=== PATIENT | male | born 1950 | race African-American/Black ===

== ENCOUNTER 2016-05-04 09:20 | Emergency (ER) | payer MEDICARE, MEDICAID ==
[~2016-05-04] VITALS: Ht 175.3 cm; Wt 68.0 kg
[~2016-05-04 09:20] MED LIST: AMLODIPINE BESY10 MG ORAL; ATRIPLA1 TAB ORAL; BP pill; LEVAQUIN750 MG ORAL; NAPROSYN500 M1 ORAL; NKM; NORCO 10-325 T1 EACH ORAL; NORCO 5-325 TA1 EACH ORAL; PERCOCET 5-3251 EACH ORAL; PREDNISONE50 MG ORAL; ROBAXIN-750750 MG PO; VALIUM10 MG ORAL; VALIUM5 MG ORAL; [UNRECOGNIZED DRUG - OTHER] IJ
[2016-05-04 09:30] VITALS: BP 130/88
[2016-05-04] MEDS ORDERED: Oxycodone/Acetaminophen 5-325 ORAL ONE (10:45)
[2016-05-04 12:24] VITALS: BP 124/78
--- NOTE | 2016-05-04 12:27 | Diagnostic Imaging Report ---
Indication: Neck pain. Technique: Continuous helical imaging of the neck was obtained transaxially from the skull base to the upper thoracic spine. 2-D coronal and sagittal reformatted images were obtained. Total Dose length Product (DLP): [address] Dose Index Volume (CTDIvol): 19 mGy Comparison: None Findings: The study is limited by the absence of a intravenous contrast. Small nodes are seen in the nonspecific in nature. The nodes are less than a centimeter in size. There is no mass identified. The epiglottis and aryepiglottic folds, larynx, subglottic airway appear unremarkable. Cartilaginous structures are unremarkable. The skull base appears clear. Mastoids are clear bilaterally. Degenerative changes of the cervical spine are moderate and characterized by narrowing of intervertebral disc, endplate, uncovertebral and facet spur formation. There is no significant malalignment seen. Aorta shows mural calcification. Impression: No specific abnormalities of the neck identified to account for the given history of pain. Atherosclerotic vascular disease Moderate spondylosis.
[2016-05-04] MEDS ORDERED: IBUPROFEN800 M1 PO (13:03)
[2016-05-04] MEDS ORDERED: ROBAXIN-750750 MG PO (13:03)
--- NOTE | 2016-05-05 07:42 | Emergency Room Report ---
History of Present Illness General Chief Complaint: Pain Source: Patient, Medical Record Present Illness HPI 65YOM with posterior neck pressure for 2 days in setting of multiple weeks of cough. + smoker. No asthma or COPD. Denies headache, change in vision, blurry vision, fever/chills, nausea/vomiting. Describes "heaviness" to back of head. Not on AC, ASA. Denies other med problems. Not taking any OTC meds. Allergies: Coded Allergies: PENICILLINS (Verified Allergy, 10/08/12) Patient History Past Medical History: none Past Surgical History: none Pertinent Family History: none Social History: Reports: smoking Immunizations: UTD Reviewed Nursing Documentation: PMH: Agreed, PSxH: Agreed Nursing Documentation-PMH Hx Hypertension: Yes Hx Cancer: No Hx Gastrointestinal Problems: No Hx Neurological Problems: No Review of Systems All Other Systems: negative except mentioned in HPI Physical Exam Vital Signs Date Time Temp Pulse Resp B/P Pulse Ox O2 Delivery O2 Flow Rate FiO2 05/04/16 09:29 98.2 61 16 130/88 98 Room Air Sp02 EP Interpretation: reviewed, normal General Appearance: normal inspection, well appearing, no apparent distress, alert, GCS 15, non-toxic Head: normocephalic, atraumatic Eyes: bilateral eye EOMI, bilateral eye PERRL ENT: normal ENT inspection, hearing grossly normal, normal voice Neck: normal inspection, full range of motion, supple, no bony tend Respiratory: normal inspection, lungs clear, normal breath sounds, no respiratory distress, no retraction, no wheezing Cardiovascular #1: regular rate, rhythm, no edema Gastrointestinal: normal inspection, normal bowel sounds, non tender, soft, no guarding, no hernia Genitourinary: no CVA tenderness Musculoskeletal: normal inspection, back normal, normal range of motion, Donald' s Sign negative Neurologic: normal inspection, alert, oriented x3, responsive, bus person III-XII nml as tested, motor strength/tone normal, speech normal Psychiatric: normal inspection, judgement/insight normal, mood/affect normal Skin: normal inspection Lymphatic: normal inspection Medical Decision Making Diagnostic Impression: Primary Impression: Neck pain ER Course 65 YOm with posterior neck pain Likely reactionary from "weeks" of cough, from smoking CT neck does not show any acute abnormalities to explain pain Was unable to do CTA neck to evaluate vasculature because of patient's stated allergy to IV contrast Feels better after analgesia DC with RX, PMD followup Last Vital Signs Date Time Temp Pulse Resp B/P Pulse Ox O2 Delivery O2 Flow Rate FiO2 05/04/16 12:24 98.2 68 16 124/78 98 Room Air Status: improved Disposition: HOME, SELF-CARE Condition: Improved Scripts Methocarbamol* (ROBAXIN-750*) 750 Mg Tablet 750 MG PO TID, #30 TAB 0 Refills Prov: TARIQ OLIVIER M.D. 05/04/16 Ibuprofen (Ibuprofen) 800 Mg Tablet 800 MG PO TID for 7 Days, #30 TAB Prov: TARIQ OLIVEIR M.D. 05/04/16 Patient Instructions: Cervical Sprain, Japs-[id number] Additional Instructions: - Take ibuprofen with flexeril up to 3x a day for neck pain/spasm - Follow up with your doctor in 2-3 days as needed TARIQ OLIVIER M.D. May 05, 2016 07:42
== END 2016-05-04 12:24 | disposition home or self-care (01) ==
LOC: EMR 10:16
DX: M54.2 Cervicalgia (principal); I10 Essential (primary) hypertension; F17.200 Nicotine dependence, unspecified, uncomplicated; Z88.0 Allergy status to penicillin
CPT/HCPCS: 70490; 99284

== ENCOUNTER 2016-06-09 13:50 | Emergency (ER) | payer MEDICARE, MEDICAID ==
[~2016-06-09] VITALS: Ht 175.3 cm; Wt 68.0 kg
[~2016-06-09 13:50] MED LIST changes: +IBUPROFEN800 M1 PO
[2016-06-09 13:54] VITALS: BP 145/72
[2016-06-09] MEDS ORDERED: Ketorolac 30mg Inj IM ONE (14:30)
[2016-06-09] MEDS ORDERED: Methocarbamol 750mg tab ORAL ONE (14:30)
[2016-06-09] MEDS ORDERED: IBUPROFEN600 MG ORAL (15:32)
[2016-06-09] MEDS ORDERED: ROBAXIN-750750 MG PO (15:32)
[2016-06-09] MEDS ORDERED: TRAMADOL HCL50 MG ORAL (15:32)
[2016-06-09 15:37] VITALS: BP 145/72
--- NOTE | 2016-06-09 15:41 | Diagnostic Imaging Report ---
Indication: PAIN Technique: 3 views of the lumbar spine Comparison: None Findings:Bony alignment is normal. Vertebral body heights are preserved. Disc spaces are preserved. No acute fractures. No dislocations. Pedicles are intact. Sacral arches are preserved Impression:Negative
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
== END 2016-06-09 15:37 | disposition home or self-care (01) ==
LOC: EMR 14:25
DX: S39.012A Strain of muscle, fascia and tendon of lower back, initial encounter (principal); I10 Essential (primary) hypertension; Z88.0 Allergy status to penicillin; V43.52XA Car driver injured in collision with other type car in traffic accident, initial encounter; Y92.410 Unspecified street and highway as the place of occurrence of the external cause; Y99.8 Other external cause status
CPT/HCPCS: 72020; 96372; 99284; J1885

== ENCOUNTER 2018-04-23 19:43 | Emergency (ER) | payer MEDICARE, MEDICAID ==
[~2018-04-23] VITALS: Ht 175.3 cm; Wt 68.0 kg
[~2018-04-23 19:43] MED LIST changes: +IBUPROFEN600 MG ORAL; +TRAMADOL HCL50 MG ORAL
[2018-04-23 20:34] VITALS: BP 149/79
--- NOTE | 2018-04-23 20:35 | Emergency Room Report ---
History of Present Illness General Chief Complaint: Skin Rash/Abscess Present Illness Allergies: Coded Allergies: PENICILLINS (Verified Allergy, 10/08/12) Patient History Past Medical History: see triage record Past Surgical History: none Pertinent Family History: none Reviewed Nursing Documentation: PMH: Agreed; PSxH: Agreed Nursing Documentation-PMH Hx Hypertension: Yes Hx Cancer: No Hx Gastrointestinal Problems: No Hx Neurological Problems: No Physical Exam Vital Signs Date Time Temp Pulse Resp B/P (MAP) Pulse Ox O2 Delivery O2 Flow Rate FiO2 04/23/18 19:59 98.2 73 16 149/79 97 Room Air Medical Decision Making PA Attestation Dr. Dunham is my supervising Physician whom patient management has been discussed with. Diagnostic Impression: Primary Impression: Acute folliculitis ER Course folliculitis Last Vital Signs Date Time Temp Pulse Resp B/P (MAP) Pulse Ox O2 Delivery O2 Flow Rate FiO2 04/23/18 19:59 98.2 73 16 149/79 97 Room Air Disposition: HOME, SELF-CARE Condition: Stable Patient Instructions: Abscess, Ptlt-[id number] Additional Instructions: Take medications as directed. ( Finish all Antibiotics). Follow up with a Primary Care Provider in 3-5 days, even if your symptoms have resolved. Return sooner to ED if new symptoms occur, or current symptoms become worse. - Please note that this Emergency Department Report was dictated using [employer] technology software, occasionally this can lead to erroneous entry secondary to interpretation by the dictation equipment. Leigh Lynn Apr 23, 2018 20:35
--- NOTE | 2018-04-23 20:35 | NUR ---
ED Nurse Note: pt walked in c/o of swollen lymph node on the left ear. pt stated he noticed it yesterday. AO4. NAD. VSS.
[2018-04-23] MEDS ORDERED: CEPHALEXIN500 MG ORAL (20:37)
[2018-04-23] MEDS ORDERED: NAPROXEN500 M2 ORAL (20:37)
[2018-04-23 20:40] VITALS: BP 149/79
--- NOTE | 2018-04-23 20:40 | NUR ---
ED Nurse Note: Patient cleared cleared for discharge per ERMD. AO4. NAD. VSS. Patient given prescriptions and discharge instructions; verbalized understanding. ID removed. Patient ambulated steady out of ED with all belongings.
== END 2018-04-23 20:40 | disposition home or self-care (01) ==
LOC: EMR 20:30
DX: L73.9 Follicular disorder, unspecified (principal); I10 Essential (primary) hypertension; Z88.0 Allergy status to penicillin
CPT/HCPCS: 99282

== ENCOUNTER 2018-09-04 13:50 | Emergency (ER) | payer MEDICARE, MEDICAID ==
[~2018-09-04] VITALS: Ht 175.3 cm; Wt 68.0 kg
[~2018-09-04 13:50] MED LIST changes: +CEPHALEXIN500 MG ORAL; +NAPROXEN500 M2 ORAL
--- NOTE | 2018-09-04 14:15 | NUR ---
ED Nurse Note: PT WALKED IN TO ER TODAY FROM HOME. AOX4. PT C/O SOB X LAST NIGHT. PT BELIEVES IT MAY BE RELATED TO CONSTIPATION. PT DENIES ABDOMINAL PAIN, NAUSEA, OR VOMITING. LAST BM X LAST NIGHT WHICH STATES WAS FORMED. AT BEDSIDE, NO SIGNS OF RESPIRATORY DISTRESS, RETRACTIONS, OR ACCESSORY MUSLCE USE NOTED. PT ABLE TO SPEAK IN FULL SENTENCES. RR18, 02SAT 99% ON RA. ABDOMEN APPEARS DISTENDED BUT NONTENDER TO PALPATION. ACTIVE BOWEL SOUNDS IN ALL QUADRANTS.
[2018-09-04 14:17] VITALS: BP_SYST 142; BP_SYST 150; BP_DIAS 78; BP_DIAS 82
--- NOTE | 2018-09-04 14:31 | NUR ---
ED Nurse Note: XRAY AT BEDSIDE.
--- NOTE | 2018-09-04 14:34 | Emergency Room Report ---
History of Present Illness General Chief Complaint: General Complaint Source: Patient Present Illness HPI Patient presents with different complaints including but not limited to Abdominal bloating sensation reports that he has not had a bowel movement for 3 days patient reports feeling generally weak He reports that when laying flat he feels more uncomfortable There was some reports of feeling short of breath denies any chest pain denies any vomiting or diarrhea denies any flank pain denies any dysuria or frequency Allergies: Coded Allergies: PENICILLINS (Verified Allergy, 10/08/12) Patient History Past Medical History: see triage record Past Surgical History: none Reviewed Nursing Documentation: PMH: Agreed; PSxH: Agreed Nursing Documentation-PMH Past Medical History: No History, Except For Hx Hypertension: Yes Hx Cancer: No Hx Gastrointestinal Problems: No Hx Neurological Problems: No Review of Systems All Other Systems: negative except mentioned in HPI Physical Exam Vital Signs Date Time Temp Pulse Resp B/P (MAP) Pulse Ox O2 Delivery O2 Flow Rate FiO2 09/04/18 13:56 98.1 65 20 147/88 (107) 97 Room Air Sp02 EP Interpretation: reviewed, normal General Appearance: well appearing, no apparent distress Head: normocephalic, atraumatic Eyes: bilateral eye PERRL, bilateral eye EOMI ENT: hearing grossly normal, normal pharynx, TMs + canals normal, uvula midline Neck: full range of motion, supple, no meningismus, no bony tend Respiratory: lungs clear, normal breath sounds, no rhonchi, no respiratory distress, no retraction, no accessory muscle use Cardiovascular #1: normal peripheral pulses, regular rate, rhythm, no edema, no gallop, no JVD, no murmur Gastrointestinal: normal bowel sounds, non tender, soft, no mass, no organomegaly, non-distended, no guarding, no hernia, no pulsatile mass, no rebound Genitourinary: no CVA tenderness Musculoskeletal: normal inspection Neurologic: oriented x3, responsive, leasing specialist III-XII nml as tested, motor strength/ tone normal, sensory intact Psychiatric: mood/affect normal Lymphatic: normal inspection, no adenopathy Medical Decision Making Diagnostic Impression: Primary Impression: Abdominal pain ER Course With the history exam and presentation, multiple differentials considered, including but not limited to appendicitis, gastritis, cholecystitis, diverticulitis Patient's blood work and imaging studies are at baseline levels On repeat evaluation patient reports that he feels significantly better He was provided a copy of his imaging and blood work and reports that he has close follow-up with his primary physician Labs Test 09/04/18 14:27 09/04/18 14:38 White Blood Count 8.4 K/UL (4.8-10.8) Red Blood Count 4.95 M/UL (4.70-6.10) Hemoglobin 14.0 G/DL (14.2-18.0) Hematocrit 44.0 % (42.0-52.0) Mean Corpuscular Volume 89 FL (80-99) Mean Corpuscular Hemoglobin 28.2 PG (27.0-31.0) Mean Corpuscular Hemoglobin Concent 31.8 G/DL (32.0-36.0) Red Cell Distribution Width 12.9 % (11.6-14.8) Platelet Count 239 K/UL (150-450) Mean Platelet Volume 5.9 FL (6.5-10.1) Neutrophils (%) (Auto) 43.7 % (45.0-75.0) Lymphocytes (%) (Auto) 45.5 % (20.0-45.0) Monocytes (%) (Auto) 8.0 % (1.0-10.0) Eosinophils (%) (Auto) 1.4 % (0.0-3.0) Basophils (%) (Auto) 1.5 % (0.0-2.0) Sodium Level 140 MMOL/L (136-145) Potassium Level 3.9 MMOL/L (3.5-5.1) Chloride Level 103 MMOL/L (98-107) Carbon Dioxide Level 28 MMOL/L (21-32) Anion Gap 9 mmol/L (5-15) Blood Urea Nitrogen 12 mg/dL (7-18) Creatinine 1.3 MG/DL (0.55-1.30) Estimat Glomerular Filtration Rate > 60 mL/min (>60) Glucose Level 102 MG/DL (74-106) Calcium Level 9.6 MG/DL (8.5-10.1) Total Bilirubin 0.3 MG/DL (0.2-1.0) Aspartate Amino Transf (AST/SGOT) 30 U/L (15-37) Alanine Aminotransferase (ALT/SGPT) 41 U/L (12-78) Alkaline Phosphatase 97 U/L (46-116) Total Creatine Kinase 112 U/L (26-308) Creatine Kinase MB 0.7 NG/ML (0.0-3.6) Creatine Kinase MB Relative Index 0.6 Troponin I 0.000 ng/mL (0.000-0.056) Pro-B-Type Natriuretic Peptide 17 pg/mL (0-125) Total Protein 8.4 G/DL (6.4-8.2) Albumin 4.9 G/DL (3.4-5.0) Globulin 3.5 g/dL Albumin/Globulin Ratio 1.4 (1.0-2.7) Lipase 204 U/L (73-393) Urine Color Pale yellow Urine Appearance Clear Urine pH 5 (4.5-8.0) Urine Specific [place] 1.010 (1.005-1.035) Urine Protein Negative (NEGATIVE) Urine Glucose (UA) Negative (NEGATIVE) Urine Ketones Negative (NEGATIVE) Urine Blood Negative (NEGATIVE) Urine Nitrite Negative (NEGATIVE) Urine Bilirubin Negative (NEGATIVE) Urine Urobilinogen Normal MG/DL (0.0-1.0) Urine Leukocyte Esterase Negative (NEGATIVE) Urine Opiates Screen Negative (NEGATIVE) Urine Barbiturates Screen Negative (NEGATIVE) Phencyclidine (PCP) Screen Negative (NEGATIVE) Urine Amphetamines Screen Negative (NEGATIVE) Urine Benzodiazepines Screen Negative (NEGATIVE) Urine Cocaine Screen Negative (NEGATIVE) Urine Marijuana (THC) Screen Negative (NEGATIVE) Rhythm Strip Diag. Results EP Interpretation: yes Rate: 77 Rhythm: NSR, no PVC's, no ectopy Chest X-Ray Diagnostic Results Chest X-Ray Diagnostic Results : Chest X-Ray Ordered: Yes # of Views/Limited/Complete: 1 View Indication: Chest Pain EP Interpretation: Yes Interpretation: no consolidation, no effusion, no pneumothorax Impression: No acute disease Electronically Signed by: Roly Villanueva, DO CT/MRI/US Diagnostic Results CT/MRI/US Diagnostic Results : Impression CT abdomen pelvisImpression: Limited assessment of the GI tract, due to lack of enteric contrast administration No definite acute abnormality Mild fatty liver Nonspecific slight infiltration of the perirectal fat, evident previously, presumably chronic Low-attenuation lesion within the L3 spinous process, unchanged from 2016 exam, presumably benign Incidental findings as noted, including posterior dependent pulmonary atelectatic changes, small left inguinal hernia contains only fat, left renal cysts, slightly prominent prostate Last Vital Signs Date Time Temp Pulse Resp B/P (MAP) Pulse Ox O2 Delivery O2 Flow Rate FiO2 09/04/18 14:17 98.2 68 18 142/82 99 Room Air Status: improved Disposition: HOME, SELF-CARE Condition: Improved Scripts Magnesium Citrate (MAGNESIUM CITRATE) 296 Ml Solution 100 ML PO DAILY for 3 Days, ML Prov: Roly Villanueva DO 09/04/18 Docusate Sodium* (COLACE*) 100 Mg Capsule 100 MG ORAL THREE TIMES A DAY, #21 CAP Prov: Roly Villanueva DO 09/04/18 Additional Instructions: Patient is provided with the discharge instructions notified to follow up with primary doctor in the next 2-3 days otherwise return to the er with any worsening symptoms. Please note that this report is being documented using [employer] technology. This can lead to erroneous entry secondary to incorrect interpretation by the dictating instrument. Roly Villanueva DO Sep 04, 2018 14:34
--- NOTE | 2018-09-04 14:40 | NUR ---
ED Nurse Note: URINE COLLECTED AND SENT TO LAB.
[2018-09-04 14:43] LABS: BASOPHILS % (AUTO) 1.5 % (0.0-2.0); EOSINOPHILS % (AUTO) 1.4 % (0.0-3.0); LYMPHOCYTES % (AUTO) 45.5 % (20.0-45.0); MEAN CORPUSCULAR VOLUME 89 FL (80-99); NEUTROPHILS % (AUTO) 43.7 % (45.0-75.0); PLATELET COUNT 239 K/UL (150-450); RED BLOOD COUNT 4.95 M/UL (4.70-6.10); RED CELL DISTRIBUTION WIDTH 12.9 % (11.6-14.8); WHITE BLOOD COUNT 8.4 K/UL (4.8-10.8)
--- NOTE | 2018-09-04 14:46 | NUR ---
ED Nurse Note: PT TO CT VIA [facility].
[2018-09-04 14:51] LABS: ANION GAP 9 mmol/L (5-15); BLOOD UREA NITROGEN 12 mg/dL (7-18); CALCIUM 9.6 MG/DL (8.5-10.1); CARBON DIOXIDE 28 MMOL/L (21-32); CHLORIDE 103 MMOL/L (98-107); CREATININE 1.3 MG/DL (0.55-1.30); POTASSIUM 3.9 MMOL/L (3.5-5.1); SODIUM 140 MMOL/L (136-145)
[2018-09-04 14:53] LABS: APPEARANCE,URINE CLEAR; BILIRUBIN, URINE NEGATIVE (NEGATIVE); COLOR,URINE PALE YELLOW; GLUCOSE, URINE (UA) NEGATIVE (NEGATIVE); KETONES,URINE NEGATIVE (NEGATIVE); LEUKOCYTE ESTERASE ,URINE NEGATIVE (NEGATIVE); NITRITE,URINE NEGATIVE (NEGATIVE); PH,URINE 5 (4.5-8.0); PROTEIN,URINE NEGATIVE (NEGATIVE); UROBILINOGEN,URINE NORMAL MG/DL (0.0-1.0)
--- NOTE | 2018-09-04 14:56 | NUR ---
ED Nurse Note: PT BACK FROM CT VIA [facility].
[2018-09-04 15:03] LABS: ALANINE AMINOTRANSFERASE 41 U/L (12-78); ALBUMIN 4.9 G/DL (3.4-5.0); ALBUMIN/GLOBULIN RATIO 1.4 (1.0-2.7); ALKALINE PHOSPHATASE 97 U/L (46-116); ASPARTATE AMINO TRANSFERASE 30 U/L (15-37); BILIRUBIN,TOTAL 0.3 MG/DL (0.2-1.0); CKMB 0.7 NG/ML (0.0-3.6); CREATINE KINASE 112 U/L (26-308)
--- NOTE | 2018-09-04 15:11 | Diagnostic Imaging Report ---
Indication: Shortness of breath Technique: One view of the chest Comparison: 07/29/2015 Findings: Inspiration is suboptimal. Lungs pleural spaces are clear. The heart is borderline enlarged, size probably exaggerated by low lung volumes Impression: No acute process Borderline cardiomegaly
--- NOTE | 2018-09-04 15:49 | Diagnostic Imaging Report ---
Indication: Abdominal pain, abdominal bloating sensation, constipation Technique: Spiral acquisitions obtained through the abdomen and pelvis. No oral contrast utilized, per emergency room physician request No IV contrast utilized, per referring physician request.. Multiplanar reconstructions were generated. Total dose length product 610.12 mGycm. CTDIvol(s) 12.2 mGy. Dose reduction achieved using automated exposure control Comparison: 07/13/2015 Findings: Lack of enteric contrast limits assessment of the GI tract. Small left inguinal hernia containing only fat again demonstrated, may be slightly larger than previously. No evidence of diverticulosis or diverticulitis demonstrated. The appendix is normal. No small bowel distention. No free or loculated intraperitoneal gas or fluid is evident. Distal esophagus, stomach, duodenum are unremarkable. There is slight infiltration of the perirectal fat, but this appears to been evident previously. Lack of IV contrast limits assessment of the solid organs. The liver is slightly hypoattenuating. No focal abnormality. The gallbladder, bile ducts, pancreas, spleen, adrenals, right kidney are unremarkable. Left kidney demonstrates multiple small cysts as well as multiple small low-attenuation lesions which are too small to characterize, also evident previously and unchanged. No renal or ureteral calculi, hydronephrosis, or hydroureter. The bladder is unremarkable. No pelvic mass or adenopathy. Prostate is only mildly prominent. No retroperitoneal or mesenteric mass or adenopathy. The included lung bases demonstrate posterior atelectatic changes. The bones demonstrate a small low-attenuation lesion in the L3 spinous process. This was evident previously in retrospect and unchanged When compared to the prior exam, previously demonstrated colonic and small bowel fluid are no longer evident Impression: Limited assessment of the GI tract, due to lack of enteric contrast administration No definite acute abnormality Mild fatty liver Nonspecific slight infiltration of the perirectal fat, evident previously, presumably chronic Low-attenuation lesion within the L3 spinous process, unchanged from 2016 exam, presumably benign Incidental findings as noted, including posterior dependent pulmonary atelectatic changes, small left inguinal hernia contains only fat, left renal cysts, slightly prominent prostate The CT scanner at [facility] is accredited by the [employer] and the scans are performed using protocols designed to limit radiation exposure to as low as reasonably achievable to attain images of sufficient resolution adequate for diagnostic evaluation.
[2018-09-04] MEDS ORDERED: MAGNESIUM CITR296 M1 PO (17:36)
[2018-09-04] MEDS ORDERED: COLACE100 MG ORAL (17:36)
--- NOTE | 2018-09-04 17:47 | NUR ---
ED Nurse Note: PT LAYING PEACEFULLY IN BED IN NAD. AOX4. PRESCRIPTIONS AND DISCHARGE PAPERWORK EXPLAINED TO PT. PT VERBALIZES UNDERSTANDING AND ALL QUESTIONS ANSWERED. PRESCRIPTIONS AND DISCHARGE PAPERWORK GIVEN TO PT, IV AND ID WRISTBAND REMOVED. PT WALKED OUT OF ER WITH STEADY GAIT AND ALL BELONGINGS.
[2018-09-04 17:48] VITALS: BP 146/82
== END 2018-09-04 17:50 | disposition home or self-care (01) ==
LOC: EMR 14:30 → CANBEDREQ 15:41 → EMR 17:50
DX: R10.9 Unspecified abdominal pain (principal); R14.0 Abdominal distension (gaseous); Z88.0 Allergy status to penicillin; I10 Essential (primary) hypertension; R06.02 Shortness of breath; K76.0 Fatty (change of) liver, not elsewhere classified; N28.1 Cyst of kidney, acquired; K40.90 Unilateral inguinal hernia, without obstruction or gangrene, not specified as recurrent
CPT/HCPCS: 36415; 71045; 74176; 80053; 80307; 81003; 82550; 82553; 83690; 83880; 84484; 85025; 87040; 93005; 96360; 99284

== ENCOUNTER 2019-05-04 12:55 | Emergency (ER) | payer MEDICARE, MEDICAID ==
[~2019-05-04] VITALS: Ht 175.3 cm; Wt 68.0 kg
[~2019-05-04 12:55] MED LIST changes: +COLACE100 MG ORAL; +MAGNESIUM CITR296 M1 PO
[2019-05-04 13:24] VITALS: BP 145/71
[2019-05-04 13:28] LABS: BASOPHILS % (AUTO) 0.9 % (0.0-2.0); EOSINOPHILS % (AUTO) 1.7 % (0.0-3.0); HEMATOCRIT 39.7 % (42.0-52.0); HEMOGLOBIN 13.4 G/DL (14.2-18.0); LYMPHOCYTES % (AUTO) 47.2 % (20.0-45.0); MEAN CORPUSCULAR VOLUME 85 FL (80-99); MONOCYTES % (AUTO) 8.3 % (1.0-10.0); NEUTROPHILS % (AUTO) 41.8 % (45.0-75.0); PLATELET COUNT 224 K/UL (150-450); RED CELL DISTRIBUTION WIDTH 12.5 % (11.6-14.8); WHITE BLOOD COUNT 9.5 K/UL (4.8-10.8)
[2019-05-04 13:40] LABS: ANION GAP 10 mmol/L (5-15); BLOOD UREA NITROGEN 12 mg/dL (7-18); CALCIUM 9.5 MG/DL (8.5-10.1); CARBON DIOXIDE 26 MMOL/L (21-32); CHLORIDE 105 MMOL/L (98-107); CREATININE 1.2 MG/DL (0.55-1.30); SODIUM 141 MMOL/L (136-145)
--- NOTE | 2019-05-04 13:40 | NUR ---
ED Nurse Note: Pt walked into ED w/ c/o R chest pain that is 3/10 pain since yesterday. Pt denies radiation, numbness, tingling. pt denies nausea, vomiting. Pt is alert and orientedx4, ambulatory. Pt is set up on monitor. Pt labs drawn and sent.
[2019-05-04 13:45] LABS: ALANINE AMINOTRANSFERASE 45 U/L (12-78); ALBUMIN 3.9 G/DL (3.4-5.0); ALKALINE PHOSPHATASE 101 U/L (46-116); ASPARTATE AMINO TRANSFERASE 28 U/L (15-37); BILIRUBIN,TOTAL 0.3 MG/DL (0.2-1.0)
--- NOTE | 2019-05-04 14:31 | Emergency Room Report ---
History of Present Illness General Chief Complaint: Chest Pain Source: Patient Present Illness [facility] Disclaimer: Please note that this report is being documented using [employer] technology. This can lead to erroneous entry secondary to incorrect interpretation by the dictating instrument. HPI: 68-year-old male with no reported medical history presents for evaluation of chest discomfort. Symptoms began approximately 2 hours prior to arrival and have now resolved. He noted a strange sensation across the upper chest, slightly more on the right side. He believes it was indigestion and drink some carbonated drinks which somewhat relieved it. He has felt this sensation in the past and usually goes away on its own. Denies any shortness of breath, recent cough, fever, chills, neck pain, back pain, abdominal pain, nausea, vomiting, diaphoresis or other changes in his health. He has not returned to his baseline has no complaints. Has not had a cardiology evaluation in the past. No history of CAD. Does not smoke. Takes no medications. Follows regularly with his PMD, Dr. Fulton PMH: Patient denies PSH: Denies Allergies: None Social Hx: Denies alcohol or tobacco use Allergies: Coded Allergies: PENICILLINS (Verified Allergy, 10/08/12) Nursing Documentation-[facility] Past Medical History: No History, Except For Hx Hypertension: Yes Hx Cancer: No Hx Gastrointestinal Problems: No Hx Neurological Problems: No Review of Systems All Other Systems: negative except mentioned in HPI Physical Exam Vital Signs Date Time Temp Pulse Resp B/P (MAP) Pulse Ox O2 Delivery O2 Flow Rate FiO2 05/04/19 12:58 97.3 59 18 153/73 (99) 97 Room Air 05/04/19 13:24 99 General: Awake and alert, no acute distress HEENT: NC/AT. EOMI. Cardiovascular: RRR. S1 and S2 normal. No murmur appreciated Resp: Normal work of breathing. No cough, wheezing or crackles appreciated Abdomen: Abdomen is soft, nondistended. Nontender Skin: Intact. No abrasions, laceration or rash over the exposed skin MSK: Normal tone and bulk. Moving all extremities. No obvious deformity. Neuro: Awake and alert. Mentating appropriately. Medical Decision Making Diagnostic Impression: Primary Impression: Chest pain ER Course 68-year-old male presents for evaluation of chest discomfort now resolved. He is well-appearing and rather stable vital signs. He has no complaints at this time. Differential includes was not limited to angina, ACS, esophageal spasm, dyspepsia, GERD, pancreatitis, pneumonia, bronchitis, effusion, muscle spasm. EKG on arrival is nonischemic though slightly bradycardic. Will obtain cardiac labs and chest x-ray. Patient has risk factors regarding his age with otherwise lifestyle factors and personal history are somewhat reassuring. Laboratory Tests Test 05/04/19 13:20 White Blood Count 9.5 K/UL (4.8-10.8) Red Blood Count 4.70 M/UL (4.70-6.10) Hemoglobin 13.4 G/DL (14.2-18.0) L Hematocrit 39.7 % (42.0-52.0) L Mean Corpuscular Volume 85 FL (80-99) Mean Corpuscular Hemoglobin 28.4 PG (27.0-31.0) Mean Corpuscular Hemoglobin Concent 33.6 G/DL (32.0-36.0) Red Cell Distribution Width 12.5 % (11.6-14.8) Platelet Count 224 K/UL (150-450) Mean Platelet Volume 5.4 FL (6.5-10.1) L Neutrophils (%) (Auto) 41.8 % (45.0-75.0) L Lymphocytes (%) (Auto) 47.2 % (20.0-45.0) H Monocytes (%) (Auto) 8.3 % (1.0-10.0) Eosinophils (%) (Auto) 1.7 % (0.0-3.0) Basophils (%) (Auto) 0.9 % (0.0-2.0) Sodium Level 141 MMOL/L (136-145) Potassium Level 4.0 MMOL/L (3.5-5.1) Chloride Level 105 MMOL/L (98-107) Carbon Dioxide Level 26 MMOL/L (21-32) Anion Gap 10 mmol/L (5-15) Blood Urea Nitrogen 12 mg/dL (7-18) Creatinine 1.2 MG/DL (0.55-1.30) Estimate Glomerular Filtration Rate > 60 mL/min (>60) Glucose Level 139 MG/DL (74-106) H Calcium Level 9.5 MG/DL (8.5-10.1) Total Bilirubin 0.3 MG/DL (0.2-1.0) Aspartate Amino Transferase (AST) 28 U/L (15-37) Alanine Aminotransferase (ALT) 45 U/L (12-78) Alkaline Phosphatase 101 U/L (46-116) Troponin I 0.000 ng/mL (0.000-0.056) Total Protein 7.9 G/DL (6.4-8.2) Albumin 3.9 G/DL (3.4-5.0) Globulin 4.0 g/dL Albumin/Globulin Ratio 1.0 (1.0-2.7) EKG Diagnostic Results EKG Time: 13:04 Rate: bradycardiac Rhythm: NSR ST Segments: no acute changes Other Impression Sinus bradycardia, normal axis, normal intervals, no ST segment changes Rhythm Strip Diag. Results Rhythm Strip Time: 13:04 EP Interpretation: yes Rate: 50s Rhythm: NSR, no PVC's, no ectopy Chest X-Ray Diagnostic Results Chest X-Ray Diagnostic Results : Chest X-Ray Ordered: Yes Indication: Chest Pain Interpretation: no consolidation, no effusion, no pneumothorax Impression: No acute disease Electronically Signed by: Electronically signed by Dr. Mansoor Dunne Reevaluation Time: 14:31 Last Vital Signs Date Time Temp Pulse Resp B/P (MAP) Pulse Ox O2 Delivery O2 Flow Rate FiO2 05/04/19 13:24 74 18 Room Air 99 05/04/19 13:24 97.3 145/71 99 Reevaluation Impression Labs including cardiac enzymes are within normal limits. Patient arvind chest pain-free. Chest x-ray unremarkable. I offered the patient admission given his age and history, he is a heart score of 3. He declined admission at this time. 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 He does not want further care in the hospital at this time but stated that he would return if any of his symptoms were to return. He understands that he needs further work-up to better elucidate the cause of his chest discomfort earlier today. He understands the risks of leaving the emergency department. He will call his PMD as soon as possible to arrange outpatient evaluation. Disposition: HOME, SELF-CARE Condition: Stable Referrals: NON PHYSICIAN (PCP) Patient Instructions: Nonspecific Chest Pain Additional Instructions: Please follow-up with Dr. Fulton as soon as possible to discuss today's emergency department visit. You may require further testing on an outpatient basis to further determine the cause of your chest discomfort earlier today. If you have any return of the chest discomfort develop severe shortness of breath, any other changes in your health please return to emergency department immediately for reevaluation. Mansoor Dunne MD May 04, 2019 14:31
--- NOTE | 2019-05-04 14:41 | NUR ---
ER DISCHARGE NOTE: Patient is cleared to be discharged per ERMD, pt is aox4, on room air, with stable vital signs. pt was given dc and prescription instructions, pt was able to verbalize understanding, pt id band and iv site removed without complications. pt is able to ambulate with steady gait. pt took all belongings. Pt educated regarding f/u w/ pMD.
[2019-05-04 14:42] VITALS: BP 133/76
--- NOTE | 2019-05-04 15:57 | Diagnostic Imaging Report ---
EXAM: XR Chest, 1 View CLINICAL HISTORY: CP TECHNIQUE: Frontal view of the chest. COMPARISON: No relevant prior studies available. FINDINGS: Lungs: Reduced lung volumes. No confluent consolidation or confluent edema. Pleural space: Unremarkable. No pneumothorax. Heart: Cardiomegaly. Mediastinum: Unremarkable. Bones/joints: No acute fracture. IMPRESSION: Reduced lung volumes. No confluent consolidation or confluent edema.
== END 2019-05-04 14:43 | disposition home or self-care (01) ==
LOC: EMR 13:15
DX: R07.9 Chest pain, unspecified (principal); Z88.0 Allergy status to penicillin; I10 Essential (primary) hypertension
CPT/HCPCS: 36415; 71045; 80053; 84484; 85025; 93005; 99284